=== PATIENT | female | born 1965 | race Caucasian/White ===

== ENCOUNTER 2017-06-09 16:43 | Emergency (ER) | payer OTHER | END 2017-06-09 16:52 | disposition home or self-care (01) | LOC: FTE 16:43 → E/R 16:52 | DX: S62.664A Nondisplaced fracture of distal phalanx of right ring finger, initial encounter for closed fracture (principal); M25.572 Pain in left ankle and joints of left foot; X58.XXXA Exposure to other specified factors, initial encounter; Y92.9 Unspecified place or not applicable | CPT/HCPCS: 29130; 73140; 73610-RT; 99284-25 ==

== ENCOUNTER 2017-12-03 02:00 | Emergency (ER) | payer OTHER ==
[2017-12-03 04:25] LABS: ADD MAN DIFF? NO
[2017-12-03 04:27] LABS: WHITE BLOOD COUNT 5.9 10^3/ul (4.8-10.8)
[2017-12-03 04:27] LABS: BASOPHILS % 0.5 % (0.0-2.0); EOSINOPHILS # 0.1 10^3/ul (0.0-0.5); EOSINOPHILS % 1.4 % (0.0-7.0); HEMATOCRIT 34.8 % (37.0-47.0); HEMOGLOBIN 11.8 g/dl (12.0-16.0); LYMPHOCYTES # 2.8 10^3/ul (0.8-2.9); MEAN CORPUSCULAR HEMOGLOBIN 31.6 pg (29.0-33.0); MEAN CORPUSCULAR HGB CONC 33.9 g/dl (32.0-37.0); MEAN CORPUSCULAR VOLUME 93.3 fl (82.0-101.0); MEAN PLATELET VOLUME 11.2 fl (7.4-10.4); MONOCYTE # 0.6 10^3/ul (0.3-0.9); MONOCYTES % 10.7 % (0.0-11.0); NEUTROPHIL # 2.4 10^3/ul (1.6-7.5); NEUTROPHILS % 40.2 % (39.0-77.0); PLATELET COUNT 240 10^3/UL (140-415); RED BLOOD COUNT 3.73 10^6/ul (4.20-5.40); RED CELL DISTRIBUTION WIDTH 13.6 % (11.5-14.5)
[2017-12-03 04:30] LABS: INR 0.78; PARTIAL THROMBOPLASTIN TIME 25.7 Sec (23.0-35.0); PROTIME 10.9 Sec (11.9-14.9); PT RATIO 0.9
[2017-12-03 04:31] LABS: BLOOD UREA NITROGEN 16 mg/dl (7-20); CALCIUM 10.1 mg/dl (8.4-10.2); CARBON DIOXIDE 24 mmol/L (21-31); GLUCOSE 122 mg/dl (70-220); POTASSIUM 3.7 mmol/L (3.5-5.1); SODIUM 140 mmol/L (135-144)
[2017-12-03 04:33] LABS: ANION GAP 15 (8-16); CHLORIDE 105 mmol/L (97-110); D-DIMER 344.24 ng/ml (<460)
[2017-12-03 04:45] LABS: B-TYPE NATRIURETIC PEPTIDE 79 PG/ML (0-125); TROPONIN-I < 0.012 ng/ml (0.000-0.120)
== END 2017-12-03 06:08 | disposition home or self-care (01) ==
LOC: E/R 02:00
DX: F41.9 Anxiety disorder, unspecified (principal); R40.2142 Coma scale, eyes open, spontaneous, at arrival to emergency department; R40.2252 Coma scale, best verbal response, oriented, at arrival to emergency department; R40.2362 Coma scale, best motor response, obeys commands, at arrival to emergency department
CPT/HCPCS: 36415; 71045; 80048; 83880; 84484; 85025; 85378; 85610; 85730; 93005; 99285-25

== ENCOUNTER 2018-03-11 19:29 | Emergency (ER) | payer OTHER ==
[2018-03-11] MEDS ORDERED: HYDROCODONE/APAP (5/325) TAB (22:36)
[2018-03-11] MEDS: HYDROCODONE/APAP (10/325) TAB PO (22:37)
[2018-03-11] MEDS: CYCLOBENZAPRINE 10 MG TAB PO (23:55)
[2018-03-12] MEDS: KETOROLAC 60 MG INJ IM (00:20)
[2018-03-12] MEDS: ONDANSETRON (ODT) 4 MG TAB ODT (00:20)
== END 2018-03-12 00:27 | disposition home or self-care (01) ==
LOC: FTE 03-12 00:27
DX: M54.2 Cervicalgia (principal); R51 Headache; R07.9 Chest pain, unspecified
CPT/HCPCS: 70450; 71045; 72125; 72128; 96372; 99285-25